=== PATIENT | female | born 2000 | race Caucasian/White ===

== ENCOUNTER 2020-01-21 21:48 | Emergency (ER) | payer OTHER, MEDICAID ==
[~2020-01-21] VITALS: Ht 160 cm; Wt 83.5 kg
[2020-01-21 22:28] LABS: URINE BILIRUBIN NEGATIVE (Negative); URINE BLOOD NEGATIVE (Negative); URINE CLARITY CLEAR; URINE COLOR YELLOW; URINE GLUCOSE-RANDOM NEGATIVE (Negative); URINE KETONES TRACE (Negative); URINE LEUKOCYTES-REFLEX TRACE (Negative); URINE NITRITE-REFLEX NEGATIVE (Negative); URINE PROTEIN NEGATIVE (Negative); URINE SPECIFIC GRAVITY 1.025 (1.005-1.030); URINE UROBILINOGEN 0.2 E.U./dl (0.2-1.0)
[2020-01-21 22:48] LABS: ABSOLUTE EOSINOPHILS 0.1 thou/uL (0.0-0.7); ABSOLUTE LYMPHOCYTES 1.7 thou/uL (0.8-5.3); ABSOLUTE MONOCYTES 0.8 thou/uL (0.0-1.2); ABSOLUTE NEUTROPHILS 6.7 thou/uL (1.6-8.1); BASOPHILS 0.4 %; EOSINOPHILS 0.8 %; HEMATOCRIT 37.8 % (37.0-47.0); HEMOGLOBIN 13.2 gm/dL (12.0-15.0); LYMPHOCYTES 18.1 %; MCHC 34.8 g/dL (28.0-37.0); MCV 86.2 fL (80.0-100.0); MONOCYTES 8.5 %; MPV 6.3 fl. (7.2-11.1); NUCLEATED RBCS 0 /100WBC; PLATELET COUNT* 314 thou/uL (150-400); POLYS 72.2 %; RBC 4.39 mil/uL (4.20-5.00); RDW-CV 13.5 % (10.5-14.5); WBC 9.2 thou/uL (4.0-11.0)
[2020-01-21 23:05] LABS: SQUAMOUS 0-3 Few /LPF (0-3); TRANSITIONAL EPITHEL CELL 0-3 Few /LPF (None Seen); URINE WBC-REFLEX 6-15 Few /HPF (0-5)
[2020-01-21 23:06] LABS: BACTERIA-REFLEX >30 Many /HPF (None Seen); COARSE GRANULAR CASTS 0-3 Few /LPF (None Seen); CRYSTALS None Seen /LPF (None Seen); FINE GRANULAR CASTS 0-3 Few /LPF (None Seen); HYALINE CASTS 0-3 Few /LPF (None Seen); MUCUS 4-6 Moderate strn/LPF (None Seen); URINE RBC 3-10 Few /HPF (0-2)
[2020-01-21 23:07] LABS: CALCIUM 8.6 mg/dL (8.5-10.1); CREATININE 0.6 mg/dL (0.6-1.3); POTASSIUM 3.4 mmol/L (3.5-5.1)
[2020-01-21 23:11] LABS: MAGNESIUM 1.7 mg/dL (1.8-2.4); TOTAL BILIRUBIN 0.3 mg/dL (<0.1-1.0); TOTAL PROTEIN 6.5 g/dL (6.4-8.2)
[2020-01-22] MEDS ORDERED: ZOFRAN ODT4 MG PO (00:22)
[2020-01-22 00:35] VITALS: BP 108/72
--- NOTE | 2020-01-22 10:38 | EKG ---
[place] [address] ELECTROCARDIOGRAM REPORT Name: DENY BRADSHAW Room: [facility]#: [id number] Admission: 01/21/20 Attend Phys: Discharge: 01/22/20 Date of : 89 Date of Service: 01/21/202229 Report #: [id number] THIS REPORT FOR: //name// [facility] ED Test Date: 2020-01-21 Test Time: 22:30:25 Pat Name: DENY BRADSHAW Department: Room: Gender: Pit Boss: : 2000 Requested By: Nilda Arana Order Number: [id number] MD: César Bolden Measurements Intervals [place] Rate: 73 P: 50 MT: 188 QRS: 53 QRSD: 90 T: 31 QT: 391 QTc: 431 Interpretive Statements Sinus rhythm Baseline wander in lead(s) II,III,aVF No previous ECG available for comparison Electronically Signed On 01-22-2020 10:38:18 CDT by César Bolden [email or web address] <ELECTRONICALLY SIGNED> By: César Bolden MD, [facility] 01/22/20 1038 29 29 César Bolden MD, [facility] /EPI
== END 2020-01-22 00:36 | disposition home or self-care (01) ==
LOC: M.ERS 21:48
PROVIDERS: Emergency Medicine
DX: O99.611 Diseases of the digestive system complicating pregnancy, first trimester (principal); O21.8 Other vomiting complicating pregnancy; O26.891 Other specified pregnancy related conditions, first trimester; R55 Syncope and collapse; K92.9 Disease of digestive system, unspecified; Z3A.10 10 weeks gestation of pregnancy